=== PATIENT | female | born 1935 | race Two or more races ===

== ENCOUNTER 2016-11-25 19:51 | Emergency (ER) | payer MEDICARE, MEDICAID ==
[~2016-11-25] VITALS: Ht 167.6 cm; Wt 63.5 kg
[~2016-11-25 19:51] MED LIST: LOSARTAN-HCTZ1 EAC2 ORAL; METOPROLOL TART50 M1 ORAL
[2016-11-25] MEDS ORDERED: ASPIRIN81 MG ORAL (20:07)
[2016-11-25 20:26] VITALS: BP 158/81
[2016-11-25 21:25] LABS: APPEARANCE,URINE CLEAR; KETONES,URINE NEGATIVE (NEGATIVE); LEUKOCYTE ESTERASE ,URINE 3+ (NEGATIVE); NITRITE,URINE NEGATIVE (NEGATIVE); PH,URINE 5 (4.5-8.0); PROTEIN,URINE NEGATIVE (NEGATIVE); UROBILINOGEN,URINE NORMAL MG/DL (0.0-1.0)
[2016-11-25 21:35] LABS: RBC,URINE 15-20 /HPF (0 - 2); SQUAMOUS EPITHELIAL CELL,UR FEW /LPF (NONE/OCC)
[2016-11-25 21:36] LABS: BACTERIA,URINE FEW /HPF
[2016-11-25 22:07] LABS: BASOPHILS % (AUTO) 1.1 % (0.0-2.0); LYMPHOCYTES % (AUTO) 37.2 % (20.0-45.0); MEAN CORPUSCULAR HEMOGLOBIN 26.3 PG (27.0-31.0); MEAN CORPUSCULAR HGB CONC 31.9 G/DL (32.0-36.0); MEAN CORPUSCULAR VOLUME 82 FL (80-99); MEAN PLATELET VOLUME 7.1 FL (6.5-10.1); MONOCYTES % (AUTO) 9.8 % (1.0-10.0); NEUTROPHILS % (AUTO) 49.9 % (45.0-75.0); PLATELET COUNT 216 K/UL (150-450); RED BLOOD COUNT 4.52 M/UL (4.20-5.40); RED CELL DISTRIBUTION WIDTH 13.8 % (11.6-14.8); WHITE BLOOD COUNT 5.2 K/UL (4.8-10.8)
--- NOTE | 2016-11-25 22:12 | Emergency Room Report ---
History of Present Illness General Chief Complaint: Dizziness Source: Family Member Present Illness HPI This patient is accompanied by her daughter. She states that her mom (the patient) had been seen here at [facility] over a year ago for palpitations. She had a negative workup that was instructed to see a stringer up soldering machine. The patient went back to [facility] and did see a stringer up soldering machine and was recommended to undergo angiography. There is concerned this patient had coronary artery blockages. Regardless, the patient had been doing well for the past year. She did not get the angiogram. The patient presents today because she has had several episodes of lightheadedness over the past month. She describes this as feeling like she is going to faint but has not fainted. She has not had a recent illness. She denies chest pain or shortness of breath. She denies fever or chills. She has not had these symptoms in about a week. She did see an outpatient clinic and was referred to a stringer up soldering machine. However, she was unable to obtain an appointment for several months. The daughter is concerned and would like her evaluated because they're going to [facility] tomorrow. She wants to make sure everything is okay. She is currently asymptomatic. There are no other complaints. Allergies: Coded Allergies: No Known Allergies (Unverified , 01/23/16) Patient History Past Medical History: see triage record, HTN, CAD Social History: Denies: alcohol use, drug use, smoking Now: No : 3 Para: 3 Reviewed Nursing Documentation: PMH: Agreed, PSxH: Agreed Nursing Documentation-PMH Hx Cardiac Problems: Yes Hx Hypertension: Yes Review of Systems All Other Systems: negative except mentioned in HPI Physical Exam Vital Signs Date Time Temp Pulse Resp B/P Pulse Ox O2 Delivery O2 Flow Rate FiO2 11/25/16 20:02 98.4 75 14 167/78 97 Room Air Sp02 EP Interpretation: reviewed, normal General Appearance: no apparent distress, alert, GCS 15, non-toxic Head: normocephalic, atraumatic Eyes: bilateral eye PERRL, bilateral eye normal inspection ENT: hearing grossly normal, normal pharynx, no angioedema, normal voice Neck: full range of motion, supple/symm/no masses Respiratory: chest non-tender, lungs clear, normal breath sounds, speaking full sentences Cardiovascular #1: regular rate, rhythm, no edema Gastrointestinal: normal bowel sounds, non tender, soft, non-distended, no guarding, no rebound Rectal: deferred Musculoskeletal: back normal, gait/station normal, normal range of motion, non- tender Neurologic: alert, oriented x3, responsive, motor strength/tone normal, sensory intact, speech normal Psychiatric: judgement/insight normal, memory normal, mood/affect normal, no suicidal/homicidal ideation Skin: normal color, no rash, warm/dry, well hydrated Medical Decision Making Diagnostic Impression: Primary Impression: Episodic lightheadedness Additional Impression: UTI (urinary tract infection) ER Course I suspect the lightheadedness that the patient is presenting with is a nonemergent in etiology. The patient does have a history of coronary artery disease. I could not say that his symptoms absolutely not related to a cardiac etiology. However, the evaluation today is reassuring and there is no family history of sudden , has no shortness of breath, and the syncope is not exertional. On physical exam, the patient is not hypotensive, has no findings of CHF, and no significant cardiac murmur suggestive of valvular heart disease or cardiac outflow obstruction. The patient reports no history of seizure or head trauma. EKG showed no evidence of concerning findings of QT prolongation, Brugada syndrome or significant ST changes suggestive of acute ischemia, dysrhythmias or significant conduction abnormalities. On laboratory evaluation , blood sugar was normal and the patient is not anemic. The patient was counseled that, though unlikely, the possibility of an emergent cause of the episodes of lightheadedness may be present and that the patient should return immediately if symptoms persist or worsen. The patient is counseled that the visit here in the emergency department does not to replace the recommendation to see a stringer up soldering machine. It is not clear if this patient cardiac gamino for travel. This is merely an ER evaluation and I did not identify an emergency vehicle condition. The patient and the daughter indicated understanding. The patient's urinalysis was questionable for mild UTI. I will go ahead and give the patient a course of antibiotics. I believe the patient is stable for discharge to followup with her PMD for further workup. Labs Test 11/25/16 21:02 11/25/16 21:30 Urine Color Pale yellow Urine Appearance Clear Urine pH 5 (4.5-8.0) Urine Specific [place] 1.015 (1.005-1.035) Urine Protein Negative (NEGATIVE) Urine Glucose (UA) Negative (NEGATIVE) Urine Ketones Negative (NEGATIVE) Urine Occult Blood 5+ (NEGATIVE) Urine Nitrite Negative (NEGATIVE) Urine Bilirubin Negative (NEGATIVE) Urine Urobilinogen Normal MG/DL (0.0-1.0) Urine Leukocyte Esterase 3+ (NEGATIVE) Urine RBC 15-20 /HPF (0 - 2) Urine WBC 5-10 /HPF (0 - 2) Urine Squamous Epithelial Cells Few /LPF (NONE/OCC) Urine Bacteria Few /HPF (NONE) White Blood Count 5.2 K/UL (4.8-10.8) Red Blood Count 4.52 M/UL (4.20-5.40) Hemoglobin 11.9 G/DL (12.0-16.0) Hematocrit 37.2 % (37.0-47.0) Mean Corpuscular Volume 82 FL (80-99) Mean Corpuscular Hemoglobin 26.3 PG (27.0-31.0) Mean Corpuscular Hemoglobin Concent 31.9 G/DL (32.0-36.0) Red Cell Distribution Width 13.8 % (11.6-14.8) Platelet Count 216 K/UL (150-450) Mean Platelet Volume 7.1 FL (6.5-10.1) Neutrophils (%) (Auto) 49.9 % (45.0-75.0) Lymphocytes (%) (Auto) 37.2 % (20.0-45.0) Monocytes (%) (Auto) 9.8 % (1.0-10.0) Eosinophils (%) (Auto) 2.0 % (0.0-3.0) Basophils (%) (Auto) 1.1 % (0.0-2.0) Prothrombin Time 10.1 SEC (9.30-11.50) Prothromb Time International Ratio 1.0 (0.9-1.1) Activated Partial Thromboplast Time 29 SEC (23-33) Sodium Level 139 mEQ/L (135-145) Potassium Level 3.9 mEQ/L (3.4-4.9) Chloride Level 96 mEQ/L (98-107) Carbon Dioxide Level 29 mEQ/L (20-30) Anion Gap 14 (5-15) Blood Urea Nitrogen 18 mg/dL (7-23) Creatinine 0.7 mg/dL (0.5-0.9) Estimat Glomerular Filtration Rate mL/min (>60) Glucose Level 96 mg/dL (74-106) Calcium Level 9.1 mg/dL (8.6-10.2) Total Bilirubin 0.5 mg/dL (0.0-1.2) Aspartate Amino Transf (AST/SGOT) 22 U/L (5-40) Alanine Aminotransferase (ALT/SGPT) 11 U/L (3-33) Alkaline Phosphatase 44 U/L (35-104) Total Creatine Kinase 102 U/L (26-140) Troponin I < 0.30 ng/mL (<=0.30) Total Protein 7.1 g/dL (6.6-8.7) Albumin 4.1 g/dL (3.5-5.2) Globulin 3.0 g/dL Albumin/Globulin Ratio 1.3 (1.0-2.7) EKG Diagnostic Results Rate: normal Rhythm: NSR ST Segments: no acute changes Other Impression Q wave in lead III, V1. Rhythm Strip Diag. Results EP Interpretation: yes Rate: 60's Rhythm: NSR, no PVC's, no ectopy Chest X-Ray Diagnostic Results Chest X-Ray Ordered: Yes # of Views/Limited/Complete: 1 View Interpretation: no consolidation, no effusion, no pneumothorax, no acute cardiopulmonary disease Indication: Other - lightheadedness Impression: No acute disease Date Electronically Signed: Nov 25, 2016 Time Electronically Signed: 22:12 Interpreting ER Physician: Rhonda Last Vital Signs Date Time Temp Pulse Resp B/P Pulse Ox O2 Delivery O2 Flow Rate FiO2 11/25/16 20:26 98.4 69 21 158/81 97 Room Air Status: improved Disposition: HOME, SELF-CARE Condition: Stable Scripts Nitrofurantoin Monohyd/M-Cryst* (MACROBID 100 MG*) 100 Mg Capsule 100 MG ORAL EVERY 12 HOURS for 10 Days, CAP Prov: YOEL JULIO D.O. 11/25/16 Referrals: LAURA ROSENTHAL M.D. (PCP) YOEL JULIO D.O. Nov 25, 2016 22:12
[2016-11-25 22:20] LABS: PROTHROMBIN TIME 10.1 SEC (9.30-11.50)
[2016-11-25 22:26] LABS: ALANINE AMINOTRANSFERASE 11 U/L (3-33); ALBUMIN/GLOBULIN RATIO 1.3 (1.0-2.7); ANION GAP 14 (5-15); ASPARTATE AMINO TRANSFERASE 22 U/L (5-40); CALCIUM 9.1 mg/dL (8.6-10.2); CARBON DIOXIDE 29 mEQ/L (20-30); CHLORIDE 96 mEQ/L (98-107); CREATININE 0.7 mg/dL (0.5-0.9); HEMOLYSIS 6; POTASSIUM 3.9 mEQ/L (3.4-4.9); SODIUM 139 mEQ/L (135-145); TOTAL PROTEIN 7.1 g/dL (6.6-8.7)
[2016-11-25 22:31] LABS: TROPONIN I < 0.30 ng/mL (<=0.30)
[2016-11-25] MEDS ORDERED: NITROFURANTOIN100 M2 ORAL (22:43)
[2016-11-25 23:01] VITALS: BP 158/81
[2016-11-25 23:02] LABS: CKMB 4.5 ng/mL (< 3.8)
--- NOTE | 2016-11-26 10:26 | Diagnostic Imaging Report ---
Indications: Chest pain, hypertension Technique: Portable AP chest Findings: Comparison: None Cardiac silhouette remains limits of normal in size. Pulmonary vasculature remains within normal limits. Focal hazy opacity persists in left lung base. Lungs and pleura remain otherwise clear. Mild calcification of the aortic arch is unchanged. IMPRESSION: No evidence of acute disease, unchanged Stable chronic changes as described. This includes focal opacity left lung base which may simply represent prominent epicardial fat pad.
== END 2016-11-25 23:02 | disposition home or self-care (01) ==
LOC: EMR 20:38
DX: R42 Dizziness and giddiness (principal); N39.0 Urinary tract infection, site not specified; I10 Essential (primary) hypertension
CPT/HCPCS: 36415; 71010; 80053; 81003; 82550; 82553; 83880; 84484; 85025; 85610; 85730; 93005; 99283

== ENCOUNTER 2017-11-10 12:57 | Emergency (ER) | payer MEDICARE, MEDICAID ==
[~2017-11-10] VITALS: Ht 167.6 cm; Wt 61.2 kg
[~2017-11-10 12:57] MED LIST changes: +ASPIRIN81 MG ORAL; +NITROFURANTOIN100 M2 ORAL
[2017-11-10 13:12] VITALS: BP 141/78
[2017-11-10 14:11] LABS: BASOPHILS % (AUTO) 0.7 % (0.0-2.0); EOSINOPHILS % (AUTO) 2.5 % (0.0-3.0); HEMATOCRIT 35.5 % (37.0-47.0); HEMOGLOBIN 11.5 G/DL (12.0-16.0); LYMPHOCYTES % (AUTO) 24.3 % (20.0-45.0); MEAN CORPUSCULAR VOLUME 80 FL (80-99); NEUTROPHILS % (AUTO) 63.5 % (45.0-75.0); PLATELET COUNT 205 K/UL (150-450); RED BLOOD COUNT 4.43 M/UL (4.20-5.40); RED CELL DISTRIBUTION WIDTH 13.4 % (11.6-14.8); WHITE BLOOD COUNT 7.4 K/UL (4.8-10.8)
[2017-11-10 14:26] LABS: ANION GAP 7 mmol/L (5-15); BLOOD UREA NITROGEN 15 mg/dL (7-18); CALCIUM 8.7 MG/DL (8.5-10.1); CARBON DIOXIDE 30 MMOL/L (21-32); CHLORIDE 101 MMOL/L (98-107); CREATININE 0.7 MG/DL (0.55-1.30); POTASSIUM 3.7 MMOL/L (3.5-5.1); SODIUM 138 MMOL/L (136-145)
--- NOTE | 2017-11-10 14:34 | Emergency Room Report ---
History of Present Illness General Chief Complaint: General Complaint Source: Patient, Medical Record (YOEL JULIO D.O.) Present Illness HPI This patient complains of left lower extremity swelling with some pain in the left foot. She has been walking a few days ago and the symptoms developed. However, the pain has persisted and the swelling has persisted. There is been no fever or chills. There is no redness. The patient did not have any long distance travel. Patient has no history of DVT. There was no trauma. The patient denies chest pain or shortness of breath. There are no other complaints. (YOEL JULIO D.O.) Allergies: Coded Allergies: No Known Allergies (Unverified , 01/23/16) Patient History Past Medical History: see triage record, HTN Social History: Denies: smoking, alcohol use, drug use Reviewed Nursing Documentation: PMH: Agreed; PSxH: Agreed (YOEL JULIO D.O. ) Nursing Documentation-PMH Past Medical History: No History, Except For Hx Cardiac Problems: Yes Hx Hypertension: Yes (YOEL JULIO D.O.) Review of Systems All Other Systems: negative except mentioned in HPI (YOEL JULIO D.O.) Physical Exam Vital Signs Date Time Temp Pulse Resp B/P (MAP) Pulse Ox O2 Delivery O2 Flow Rate FiO2 11/10/17 13:02 98.1 81 18 141/78 95 Room Air 98.1 Sp02 EP Interpretation: reviewed, normal General Appearance: no apparent distress, alert, GCS 15, non-toxic Head: normocephalic, atraumatic Eyes: bilateral eye normal inspection, bilateral eye PERRL ENT: hearing grossly normal, normal pharynx, no angioedema, normal voice Neck: full range of motion, supple/symm/no masses Respiratory: chest non-tender, lungs clear, normal breath sounds, no respiratory distress, no retraction, no accessory muscle use, speaking full sentences Cardiovascular #1: regular rate, rhythm, no edema Gastrointestinal: normal bowel sounds, non tender, soft, non-distended, no guarding, no rebound Rectal: deferred Musculoskeletal: back normal, normal range of motion, non-tender, swelling - Clear non-pitting edema L. Lower extremity from mid calf through foot. Neurologic: alert, oriented x3, responsive, motor strength/tone normal, sensory intact, speech normal Psychiatric: judgement/insight normal, memory normal, mood/affect normal, no suicidal/homicidal ideation Skin: normal color, no rash, warm/dry, well hydrated (YOEL JULIO D.O.) Medical Decision Making Diagnostic Impression: Primary Impression: Gout attack ER Course This patient presents with left lower extremity edema. Although there is no history of long distance travel, I'm concerned the patient could have a DVT. The patient underwent ultrasound of the left lower should be which showed no e/ o DVT. This patient has a physical exam findings consistent with dependent edema. She is instructed to obtain compression stockings and elevation. Laboratory workup is noncontributory and unremarkable. The patient is instructed to follow closely with her primary care physician. Laboratory Tests Test 11/10/17 13:55 White Blood Count 7.4 K/UL (4.8-10.8) Red Blood Count 4.43 M/UL (4.20-5.40) Hemoglobin 11.5 G/DL (12.0-16.0) L Hematocrit 35.5 % (37.0-47.0) L Mean Corpuscular Volume 80 FL (80-99) Mean Corpuscular Hemoglobin 26.0 PG (27.0-31.0) L Mean Corpuscular Hemoglobin Concent 32.5 G/DL (32.0-36.0) Red Cell Distribution Width 13.4 % (11.6-14.8) Platelet Count 205 K/UL (150-450) Mean Platelet Volume 6.6 FL (6.5-10.1) Neutrophils (%) (Auto) 63.5 % (45.0-75.0) Lymphocytes (%) (Auto) 24.3 % (20.0-45.0) Monocytes (%) (Auto) 9.0 % (1.0-10.0) Eosinophils (%) (Auto) 2.5 % (0.0-3.0) Basophils (%) (Auto) 0.7 % (0.0-2.0) Prothrombin Time 10.7 SEC (9.30-11.50) Prothrombin Time INR 1.0 (0.9-1.1) PTT 32 SEC (23-33) Sodium Level 138 MMOL/L (136-145) Potassium Level 3.7 MMOL/L (3.5-5.1) Chloride Level 101 MMOL/L (98-107) Carbon Dioxide Level 30 MMOL/L (21-32) Anion Gap 7 mmol/L (5-15) Blood Urea Nitrogen 15 mg/dL (7-18) Creatinine 0.7 MG/DL (0.55-1.30) Estimate Glomerular Filtration Rate mL/min (>60) Glucose Level 98 MG/DL (74-106) Calcium Level 8.7 MG/DL (8.5-10.1) Total Bilirubin 1.2 MG/DL (0.2-1.0) H Direct Bilirubin 0.3 MG/DL (0.0-0.3) Aspartate Amino Transferase (AST) 24 U/L (15-37) Alanine Aminotransferase (ALT) 27 U/L (12-78) Alkaline Phosphatase 42 U/L (46-116) L Total Creatine Kinase 49 U/L (26-308) Creatine Kinase MB 1.0 NG/ML (0.0-3.6) Creatine Kinase MB Relative Index 2.0 Total Protein 7.3 G/DL (6.4-8.2) Albumin 3.6 G/DL (3.4-5.0) Globulin 3.7 g/dL Albumin/Globulin Ratio 1.0 (1.0-2.7) (YOEL JUILO D.O.) ER Course Patient presents emergency department today with foot pain. Case was signed out to me for final disposition. I've also evaluated patient. Patient's ultrasound x-rays were negative. Patient's exam consistent with gout. We'll provide prescription for indomethacin and Yale.Patient is advised to follow up with primary doctor in 2-3 days and return the emergency room for any worsening symptoms and as needed. (Arsen Duran MD) Other X-Ray Diagnostic Results Other X-Ray Diagnostic Results #1: X-Ray ordered: Left ankle # of Views/Limited Vs Complete: 3 View Indication: Pain EP Interpretation: Yes Interpretation: no dislocation, no soft tissue swelling, no fractures Impression: No acute disease Electronically Signed by: Interpreted by and Electronically signed by Arsen Duran MD Other X-Ray Diagnostic Results #2: X-Ray ordered: Left foot # of Views/Limited Vs Complete: 3 View Indication: Pain EP Interpretation: Yes PA Xray: Interpretation reviewed Interpretation: no dislocation, no soft tissue swelling, no fractures Impression: No acute disease Electronically Signed by: Interpreted by andElectronically signed by Arsen Duran MD (Arsen Duran MD) CT/MRI/US Diagnostic Results CT/MRI/US Diagnostic Results : Imaging Test Ordered: US LLE: Impression No DVT (YOEL JULIO.Emeterio) Last Vital Signs Date Time Temp Pulse Resp B/P (MAP) Pulse Ox O2 Delivery O2 Flow Rate FiO2 11/10/17 13:12 98.1 76 18 141/78 97 Room Air 98.1 (YOEL JULIO.OMina) Status: improved (Arsen Duran MD) Disposition: HOME, SELF-CARE Condition: Stable Scripts Indomethacin (INDOMETHACIN) 25 Mg Capsule 25 MG PO TID for pain, #15 CAP Prov: Arsen Duran MD 11/10/17 Hydrocodone Bit/Acetaminophen 5-325* (NORCO 5-325*) 1 Each Tablet 1 TAB ORAL Q6H PRN for For Pain, #10 TAB 0 Refills Prov: Arsen Duran MD 11/10/17 Referrals: NON PHYSICIAN (PCP) YOEL JULIO D.O. Nov 10, 2017 14:34 Arsen Duran MD Nov 10, 2017 16:00
[2017-11-10 14:41] LABS: ALANINE AMINOTRANSFERASE 27 U/L (12-78); ALBUMIN 3.6 G/DL (3.4-5.0); ALKALINE PHOSPHATASE 42 U/L (46-116); ASPARTATE AMINO TRANSFERASE 24 U/L (15-37); BILIRUBIN,TOTAL 1.2 MG/DL (0.2-1.0); CREATINE KINASE 49 U/L (26-308)
[2017-11-10 14:42] LABS: BILIRUBIN,DIRECT 0.3 MG/DL (0.0-0.3)
[2017-11-10] MEDS ORDERED: NORCO 5-325 TA1 EACH ORAL (15:55)
[2017-11-10] MEDS ORDERED: INDOMETHACIN25 MG PO (15:55)
--- NOTE | 2017-11-10 16:02 | Diagnostic Imaging Report ---
Indication: Reason For Exam: PAIN Technique: 3 views of the left ankle Comparison: none Findings: No acute fractures. No dislocations. Joint spaces are preserved. Normal mineralization. No radiopaque foreign body. There is a small calcaneal spur Impression: No acute process This agrees with the preliminary interpretation provided by the emergency room physician
[2017-11-10 16:10] VITALS: BP 145/62
--- NOTE | 2017-11-10 16:10 | Diagnostic Imaging Report ---
Indication: Pain Technique: 3 views left foot Comparison: none Findings: No acute fractures. No dislocations. The joint spaces are preserved. There are vascular calcifications. There is a small calcaneal spur. Impression: No acute process This agrees with the preliminary interpretation provided by the emergency room physician
== END 2017-11-10 16:10 | disposition home or self-care (01) ==
LOC: EMR 14:26
DX: M10.9 Gout, unspecified (principal); I10 Essential (primary) hypertension
CPT/HCPCS: 36415; 80053; 82248; 82550; 82553; 85025; 85610; 85730; 93971; 99284

== ENCOUNTER 2018-01-05 13:45 | Outpatient (RCR) | payer MEDICARE, MEDICAID ==
[~2018-01-05 13:45] MED LIST changes: +INDOMETHACIN25 MG PO; +NORCO 5-325 TA1 EACH ORAL
== END 2018-02-04 | disposition home or self-care (01) ==
LOC: PTY 13:45
DX: G45.9 Transient cerebral ischemic attack, unspecified (principal); I10 Essential (primary) hypertension

== ENCOUNTER 2018-02-16 13:45 | Outpatient (RCR) | payer MEDICARE, MEDICAID | END 2018-03-06 | disposition home or self-care (01) | LOC: PTY 13:45 | DX: R20.0 Anesthesia of skin (principal); I10 Essential (primary) hypertension; M25.511 Pain in right shoulder ==

== ENCOUNTER 2018-03-16 14:10 | Outpatient (RCR) | payer MEDICARE, MEDICAID | END 2018-04-06 | disposition home or self-care (01) | LOC: PTY 14:10 | DX: R20.0 Anesthesia of skin (principal); M25.511 Pain in right shoulder; I10 Essential (primary) hypertension | CPT/HCPCS: 97110; 97140; G8984; G8985 ==